=== PATIENT | male | born 1995 | race Caucasian/White ===

== ENCOUNTER 2021-12-20 01:47 | Emergency (ER) | payer OTHER ==
[~2021-12-20] VITALS: Ht 162.6 cm; Wt 77.1 kg
[2021-12-20 01:55] VITALS: BP 136/88
--- NOTE | 2021-12-20 01:55 | NUR ---
to bed ambulatory
--- NOTE | 2021-12-20 02:00 | NUR ---
SEEN AND EXAMINED BY MERCEDES
[2021-12-20] MEDS ORDERED: NAPR-54 PO (02:09)
[2021-12-20] MEDS ORDERED: CIPR500T4 PO (02:09)
[2021-12-20 02:13] VITALS: BP 136/88
--- NOTE | 2021-12-20 02:13 | NUR ---
Patient discharged with v/s stable. Written and verbal after care instructions given and explained BY DR. RAMOS Patient alert, oriented and verbalized understanding of instructions. Ambulatory with steady gait. All questions addressed prior to discharge. ID band removed. Patient advised to follow up with PMD. Rx of given. Patient educated on indication of medication including possible reaction and side effects. Opportunity to ask questions provided and answered.
== END 2021-12-20 02:13 | disposition home or self-care (01) ==
LOC: MED 01:47
DX: N45.1 Epididymitis (principal); Z79.899 Other long term (current) drug therapy
CPT/HCPCS: 99283